=== PATIENT | male | born 1960 | race Hispanic/Latino ===

== ENCOUNTER 2016-07-09 09:30 | Emergency (ER) | payer BC ==
[2016-07-09 09:35] VITALS: BMI 26.6
[2016-07-09] MEDS ORDERED: Sodium Chloride 0.9% 1,000 ML IV STA ×2 (09:54→11:32)
--- NOTE | 2016-07-09 09:58 | ED PDOC ---
Arrival/HPI - General Chief Complaint: Dizziness/Lightheaded Time Seen by Provider: 07/09/16 09:51 Historian: Patient - History of Present Illness Narrative History of Present Illness (Text): 07/09/16 09:55 55 year old male presents to the emergency department with weakness, lightheadedness, and dizziness while driving today. Patient reports he recently started taking Lyrica and Cymbalta. Currently patient states symptoms are better. PMD: Dr. Miguel A Grande Time/Duration: Prior to Arrival Symptom Onset: Gradual Symptom Course: Improving Modifying Factors (Text): None Associated Symptoms (Text): None Past Medical History - Provider Review Nursing Documentation Reviewed: Yes - Cardiac Hx Hypertension: Yes Hx Pacemaker: No - Neurological Hx Paralysis: No Other/Comment: Peripheral Neuropathy - Hematological/Oncological Hx Blood Transfusions: No - Musculoskeletal/Rheumatological Hx Musculoskeletal Disorders: No - Psychiatric Hx Emotional Abuse: No Hx Physical Abuse: No Hx Substance Use: No - Surgical History Hx Appendectomy: Yes Hx Coronary Stent: Yes (x 1) - Anesthesia Hx Anesthesia Reactions: No Hx Malignant Hyperthermia: No - Suicidal Assessment Feels Threatened In Home Enviroment: No Family/Social History - Physician Review Nursing Documentation Reviewed: Yes Family/Social History: Unknown Family HX Smoking Status: Never Smoked Hx Alcohol Use: No Hx Substance Use: No Allergies/Home Meds Allergies/Adverse Reactions: Allergies No Known Allergies Allergy (Verified 07/09/16 09:35) Home Medications: Home Meds Medication Instructions Recorded Confirmed Aspirin [Ecotrin] 81 mg PO DAILY 05/02/15 07/09/16 DULoxetine [Cymbalta] 30 mg PO DAILY 07/09/16 07/09/16 Pregabalin [Lyrica] 50 mg PO DAILY 07/09/16 07/09/16 diltiaZEM [Diltiazem HCl] 0 mg PO DAILY 07/09/16 07/09/16 Review of Systems - Physician Review All systems were reviewed & negative as marked: Yes Physical Exam - Physical Exam Narrative Physical Exam (Text): - Review of Systems Constitutional: Normal. absent: Fatigue, Weight Change, Fevers Eyes: Normal ENT: Normal Respiratory: Normal absent: SOB, Cough, Sputum Cardiovascular: Normal absent: Chest pain, Palpitations, Syncope Gastrointestinal: Normal absent: Abdominal pain, Diarrhea, Nausea, Vomiting Genitourinary: Normal. absent: Dysuria, Frequency, Hematuria Musculoskeletal: Normal. absent: Arthralgias, Back Pain, Neck Pain Skin: Normal Neurological: Weakness/Lightheadedness/Dizziness absent: Focal Weakness Endocrine: Normal Hemo/Lymphatic: Normal Psychiatric: Normal - Physical exam Patient appears age appropriate, speaking full sentences without difficulty - Systems Exam Head: Present: Atraumatic, Normocephalic Pupils: Present: PERRL Extraocular Muscles: Present: EOMI Conjunctiva: Present: Normal Mouth: Present: Moist Mucous Membranes Neck: Present: Normal Range of Motion. No: MIDLINE TENDERNESS, Paraspinal Tenderness Respiratory/Chest: Present: Clear to Auscultation, Good Air Exchange. No: Respiratory Distress, Accessory Muscle Use, Tachypneic Cardiovascular: Present: Regular Rate and Rhythm, Normal S1, S2, Peripheral Pulses Present. No: Murmurs Abdomen: Present: Normal Bowel Sounds, No: Tenderness, Peritoneal Signs, Rebound, Guarding, Distention Back: Present: Normal Inspection. No: Midline Tenderness, Paraspinal Tenderness Upper Extremity: Present: Normal Inspection. No: Cyanosis, Edema Lower Extremity: Present: Normal Inspection. No: Edema Neurological: Present: GCS=15, Speech Normal, cranial nerves II through XII fully intact with no cerebellar abnormality, neuro-sensory fully intact. No focal neurological deficits. HINTS negative. Skin: Present: Warm, Dry, Normal Color. No: Rashes Lymphatic: Present: OX3, NI, NC Psychiatric: Present: Alert, Oriented x 3, Normal Insight, Normal Concentration Vital Signs Reviewed: Yes Vital Signs Temp Pulse Resp BP Pulse Ox 07/09/16 15:00 65 18 113/65 99 07/09/16 12:45 58 L 18 119/65 97 07/09/16 11:30 59 L 17 119/65 100 07/09/16 09:42 98.2 F 63 18 155/92 H 100 Blood Pressure: Hypertensive Pulse: Regular Respiratory Rate: Normal Appearance: Positive for: Well-Appearing, Non-Toxic, Comfortable Pain Distress: None Mental Status: Positive for: Alert and Oriented X 3 Finger Stick Blood Glucose: 170 Medical Decision Making ED Course and Treatment: Impression: 55 year old male presents with weakness, lightheadedness, and dizziness while driving today. On physical exam, patient has no acute findings. Plan: -- CT head w/o contrast, Chest X-ray -- IV fluids -- Labs -- Reassess and disposition Progress Notes: 07/09/16 11:37 Case discussed in detail with Dr. Miguel A Grande who asked to add Troponin and states he will see the patient in the emergency department. CT Head: Wirer Maintenance: Dr. Isaac Muller IMPRESSION: Normal CT of the Head. No acute intracranial abnormalities. No significant findings to account for the clinical presentation. Case discussed with Dr. Miguel A Grande who saw the patient in the emergency department. Dr. Grande states to discharge the patient home. He states the patient already has instructions to only take Lyrica and discontinue other medications. Patient states he feels comfortable being discharged home. Instructed patient to follow up with PMD or return to the emergency room if symptoms worsen. Patient stable for discharged. All questions answered. Patient received Ativan in the emergency department for feeling anxious, asked to sleep for a little longer before driving home. Patient denies suicidal or homicidal ideations, states he does not wish to speak with a crisis counselor. - Lab Interpretations Lab Results: 07/09/16 10:00 07/09/16 10:00 Lab Results 07/09/16 11:16: Urine Color Light yellow, Urine Appearance Clear, Urine pH 7.5, Ur Specific [place] 1.010, Urine Protein Negative, Urine Glucose (UA) Negative, Urine Ketones Negative, Urine Blood Negative, Urine Nitrate Negative, Urine Bilirubin Negative, Urine Urobilinogen 0.2, Ur Leukocyte Esterase Negative 07/09/16 10:00: WBC 6.7, RBC 5.59, Hgb 16.3, Hct 47.1, MCV 84.3, MCH 29.2, MCHC 34.6, RDW 13.1, Plt Count 217, MPV 9.8, Gran % 74.5 H, Lymph % (Auto) 19.0 L, [place] % (Auto) 5.1, Eos % (Auto) 1.3 L, Baso % (Auto) 0.1, Gran # 5.00, Lymph # 1.3, [place] # 0.3, Eos # 0.1, Baso # 0.01, PT 11.5, INR 1.06, APTT 30.0, Sodium 141, Potassium 4.0, Chloride 102, Carbon Dioxide 28, Anion Gap 15, BUN 16, Creatinine 1.0, Est GFR ( Amer) > 60, Est GFR (Non-Af Amer) > 60, Random Glucose 165 H, Calcium 10.5, Total Bilirubin 1.2, AST 22, ALT 22, Alkaline Phosphatase 65, Troponin I < 0.01, Total Protein 8.0, Albumin 4.6, Globulin 3.4 , Albumin/Globulin Ratio 1.4 07/09/16 09:39: POC Glucose (mg/dL) 170 H - RAD Interpretation Radiology Orders: 07/09/16 09:52 HEAD W/O CONTRAST [CT] Stat 07/09/16 09:54 CHEST PORTABLE [RAD] Stat - Medication Orders Current Medication Orders: Discontinued Medications Sodium Chloride (Sodium Chloride 0.9%) 1,000 mls @ 1,000 mls/hr IV .Q1H STA Stop: 07/09/16 10:53 Last Admin: 07/09/16 10:06 Dose: 1,000 MLS/HR eMAR Start Stop Document 07/09/16 10:06 ALA (Rec: 07/09/16 10:06 ALA [id number]) Intravenous Solution Start Date 07/09/16 Start Time 10:06 End Date 07/09/16 End time 11:06 Total Infusion Time 60 Sodium Chloride (Sodium Chloride 0.9%) 1,000 mls @ 1,000 mls/hr IV .Q1H STA Stop: 07/09/16 12:31 Last Admin: 07/09/16 11:46 Dose: 1,000 MLS/HR eMAR Start Stop Document 07/09/16 11:46 ALA (Rec: 07/09/16 11:47 ALA [id number]) Intravenous Solution Start Date 07/09/16 Start Time 11:46 End Date 07/09/16 End time 12:46 Total Infusion Time 60 Lorazepam (Ativan) 2 mg IVP ONCE ONE Stop: 07/09/16 11:23 Last Admin: 07/09/16 11:47 Dose: 2 MG Behavioural Document 07/09/16 11:47 ALA (Rec: 07/09/16 11:47 ALA [id number]) Maintenance Maintenance Dose Yes Behavior Behavior for Medication: Anxiety IVP Administration Document 07/09/16 11:47 ALA (Rec: 07/09/16 11:47 ALA [id number]) Charges for Administration # of IVP Administrations 1 - Scribe Statement The provider has reviewed the documentation as recorded by the Scribe Omi Ly Provider Scribe Attestation: All medical record entries made by the Basia were at my direction and personally dictated by me. I have reviewed the chart and agree that the record accurately reflects my personal performance of the history, physical exam, medical decision making, and the department course for this patient. I have also personally directed, reviewed, and agree with the discharge instructions and disposition. Disposition/Present on Arrival - Present on Arrival Any Indicators Present on Arrival: No History of DVT/PE: No History of Uncontrolled Diabetes: No Urinary Catheter: No History of Decub. Ulcer: No History Surgical Site Infection Following: None - Disposition Have Diagnosis and Disposition been Completed?: Yes Diagnosis: Weakness Disposition: HOME/ ROUTINE Disposition Time: 16:29 Patient Plan: Discharge Condition: GOOD Discharge Instructions (ExitCare): Weakness (ED) Additional Instructions: PLEASE RETURN TO THE EMERGENCY DEPARTMENT FOR NEW OR WORSENING SYMPTOMS. RETURN RIGHT AWAY IF YOU CANNOT FOLLOW UP WITH YOUR PRIMARY CARE DOCTOR, CLINIC, OR SPECIALIST IN 1-2 DAYS. Forms: WORK NOTE
[2016-07-09 10:09] LABS: ADD MANUAL DIFF? NO
[2016-07-09 10:16] LABS: BASO # 0.01 K/mm3 (0.0-2.0); BASO % 0.1 % (0.0-3.0); EOS # 0.1 (0.0-0.7); EOS % 1.3 % (1.5-5.0); GRAN % 74.5 % (50.0-68.0); HEMATOCRIT 47.1 % (42.0-52.0); LYMPH # 1.3 (1.2-3.4); MEAN CELL VOLUME 84.3 fL (80.0-105.0); MEAN CORPUSCULAR HEMOGLOBIN 29.2 pg (25.0-35.0); MEAN CORPUSCULAR HGB CONC 34.6 g/dl (31.0-37.0); MEAN PLATELET VOLUME 9.8 fl (7.0-11.0); MONO # 0.3 (0.1-0.6); MONO % 5.1 % (1.0-6.0); PLATELET COUNT 217 10^3/uL (120.0-450.0); RED CELL DISTRIBUTION WIDTH 13.1 % (11.5-14.5); WHITE BLOOD COUNT 6.7 10^3/ul (4.5-11.0)
[2016-07-09 10:27] LABS: INR 1.06 (0.93-1.08)
[2016-07-09 10:31] LABS: ALB/GLOB RATIO 1.4 (1.1-1.8); ALKALINE PHOSPHATASE 65 U/L (38-133); ALT/SGPT 22 U/L (7-56); AST/SGOT 22 U/L (15-59); BILIRUBIN,TOTAL 1.2 mg/dL (0.2-1.3); BLOOD UREA NITROGEN 16 mg/dL (7-21); CALCIUM 10.5 mg/dL (8.4-10.5); CARBON DIOXIDE 28 mmol/L (21-33); CHLORIDE 102 mmol/L (98-107); GFR AFRICAN-AMERICAN > 60; GLUCOSE,RANDOM 165 mg/dL (70-110); SODIUM 141 mmol/L (132-148)
--- NOTE | 2016-07-09 10:44 | CT ---
PROCEDURE: CT HEAD WITHOUT CONTRAST. HISTORY: [place] x2 weeks COMPARISON: None available. TECHNIQUE: Axial computed tomography images were obtained through the head/brain without intravenous contrast. Radiation dose: Total exam DLP = 688.31 mGy-cm. FINDINGS: HEMORRHAGE: No intracranial hemorrhage. BRAIN: No mass effect or edema. No atrophy or chronic microvascular ischemic changes. VENTRICLES: Unremarkable. No hydrocephalus. CALVARIUM: Unremarkable. PARANASAL SINUSES: Unremarkable as visualized. No significant inflammatory changes. MASTOID AIR CELLS: Unremarkable as visualized. No inflammatory changes. OTHER FINDINGS: None. IMPRESSION: Normal CT of the Head. No acute intracranial abnormalities. No significant findings to account for the clinical presentation.
--- NOTE | 2016-07-09 11:23 | RAD ---
HISTORY: Cough. Technique: Single view portable semi erect @ 10:20. COMPARISON: No prior. FINDINGS: LUNGS: No active pulmonary disease. PLEURA: No significant pleural effusion identified, no pneumothorax apparent. CARDIOVASCULAR: No radiographic findings to suggest acute or significant cardiovascular disease. OSSEOUS STRUCTURES: No significant abnormalities. VISUALIZED UPPER ABDOMEN: Normal. OTHER FINDINGS: None. IMPRESSION: No active disease.
[2016-07-09 11:25] LABS: PH,URINE 7.5 (4.7-8.0); URINE APPEARANCE CLEAR (CLEAR); URINE BILIRUBIN NEGATIVE (NEGATIVE); URINE BLOOD NEGATIVE (NEGATIVE); URINE COLOR LIGHT YELLOW (YELLOW); URINE GLUCOSE (UA) NEGATIVE (NEGATIVE); URINE KETONE NEGATIVE (NEGATIVE); URINE LEUKOCYTE ESTERASE NEGATIVE Leu/uL (NEGATIVE); URINE PROTEIN NEGATIVE mg/dL (<30 mg/dL); URINE UROBILINOGEN 0.2 E.U./dL (<1 E.U./dL)
[2016-07-09 12:45] VITALS: RESP 18
[2016-07-09 16:56] VITALS: BP 128/77; PULSE 58; TEMP 97.8; O2SAT 98
--- NOTE | 2016-07-09 18:27 | CARD ---
APPROVED REPORT EKG Measurement Heart [id number] <Conclusion> Normal sinus rhythm Normal ECG
== END 2016-07-09 16:56 | disposition home or self-care (01) ==
LOC: ED 09:30
DX: R53.1 Weakness (principal); I10 Essential (primary) hypertension
CPT/HCPCS: 70450; 71010; 80053; 81003; 82948; 84484; 85025; 85610; 85730; 93005; 96361; 96374; 99285; J2060; J7040

== ENCOUNTER 2016-07-13 08:42 | Inpatient (IN) | payer BC ==
--- NOTE | 2016-07-13 10:10 | ED PDOC ---
Arrival/HPI - General Chief Complaint: Dizziness/Lightheaded Time Seen by Provider: 07/13/16 09:09 Historian: Patient - History of Present Illness Narrative History of Present Illness (Text): 07/13/16 10:46 55yr old male presents today with dizziness, weakness, 45lb weight loss, cough, intermitted abdominal pain, constipation x 4 days. no fever/chills. c/o generalized weakness. pt was just seen in er for dizziness and generalized weakness and d/c home to f/u with pmd. pt presents today feeling worse. denies headaches. no cp or sob. c/o continued paresthesias in the lower extremities since he was diagnosed with peripheral neuropathy. Patient denies chest pain. Patient states he has been having intermittent cough. Patient denies urinary symptoms. No other complaints. Past Medical History - Provider Review Nursing Documentation Reviewed: Yes - Travel History Have you recently traveled outside [place] w/in the past 3 mons?: No - Tetanus Immunization Tetanus Immunization: Unknown - Cardiac Hx Cardiac Disorders: Yes Hx Hypertension: Yes Hx Pacemaker: No - Pulmonary Hx Respiratory Disorders: No - Neurological Hx Neurological Disorder: Yes Hx Paralysis: No Other/Comment: Peripheral Neuropathy - HEENT Hx HEENT Disorder: No - Renal Hx Renal Disorder: No - Endocrine/Metabolic Hx Endocrine Disorders: No - Hematological/Oncological Hx Blood Disorders: No Hx Blood Transfusions: No - Integumentary Hx Dermatological Disorder: No - Musculoskeletal/Rheumatological Hx Musculoskeletal Disorders: No - Gastrointestinal Hx Gastrointestinal Disorders: No - Genitourinary/Gynecological Hx Genitourinary Disorders: No - Psychiatric Hx Psychophysiologic Disorder: No Hx Emotional Abuse: No Hx Physical Abuse: No Hx Substance Use: No - Surgical History Hx Appendectomy: Yes Hx Coronary Stent: Yes (x 1) - Anesthesia Hx Anesthesia Reactions: No Hx Malignant Hyperthermia: No - Suicidal Assessment Feels Threatened In Home Enviroment: No Family/Social History - Physician Review Nursing Documentation Reviewed: Yes Family/Social History: Unknown Family HX Smoking Status: Never Smoked Hx Alcohol Use: No Hx Substance Use: No Allergies/Home Meds Allergies/Adverse Reactions: Allergies No Known Allergies Allergy (Verified 07/13/16 09:07) Home Medications: Home Meds Medication Instructions Recorded Confirmed Gabapentin [Neurontin] 400 mg PO TID 07/13/16 07/13/16 Review of Systems - Review of Systems Constitutional: Fatigue. absent: Fevers Respiratory: Cough. absent: SOB Cardiovascular: absent: Chest Pain Gastrointestinal: Abdominal Pain, Constipation. absent: Nausea, Vomiting Genitourinary Male: absent: Dysuria Musculoskeletal: Arthralgias Skin: absent: Rash Neurological: Dizziness. absent: Headache Physical Exam Vital Signs Reviewed: Yes Vital Signs Temp Pulse Resp BP Pulse Ox 07/13/16 11:00 66 16 146/96 H 100 07/13/16 09:07 98.2 F 60 16 116/72 100 Temperature: Afebrile Blood Pressure: Normal Pulse: Regular Respiratory Rate: Normal Appearance: Positive for: Well-Appearing, Non-Toxic, Comfortable Pain Distress: None Mental Status: Positive for: Alert and Oriented X 3 Finger Stick Blood Glucose: 105 - Systems Exam Head: Present: Atraumatic Mouth: Present: Moist Mucous Membranes Respiratory/Chest: Present: Clear to Auscultation Cardiovascular: Present: Regular Rate and Rhythm Abdomen: Present: Normal Bowel Sounds. No: Tenderness, Distention, Peritoneal Signs, Rebound, Guarding Upper Extremity: Present: Normal Inspection Neurological: Present: GCS=15, Speech Normal Skin: Present: Warm, Dry, Normal Color. No: Rashes Psychiatric: Present: Alert, Oriented x 3 Medical Decision Making ED Course and Treatment: 07/13/16 55yr old male presenting with generalized weakness, weight loss, dizziness, intermittent cough/abdominal pain and constipation. case discussed with dr. lamb and dr. hawkins; dr. hawkins would like ct/chest/abd/pelvis; concerned for possible neoplasm cbc; wnl cmp; wnl trop; wnl additional testing ordered. ct: chest/abd/pelvis:CT CHEST WITH CONTRAST: LUNGS: Clear. No nodule, mass or consolidation. MEDIASTINUM: Unremarkable. Normal caliber aorta and pulmonary arterial trunk. No aortic dissection. Normal size heart. LYMPH NODES: Unremarkable. PLEURA: Unremarkable. No pneumothorax. No pleural fluid. BONES: Unremarkable. OTHER FINDINGS: None. CT ABDOMEN AND PELVIS: LIVER: Unremarkable. No gross lesion or ductal dilatation. GALLBLADDER AND BILE DUCTS: Unremarkable. PANCREAS: There is a poorly defined area of low density in the pancreatic tail seen on image 126 series 2. This measures 7 x 14 mm. This is not visible on the corresponding coronal or sagittal images. Part of the appearance may be due to volume averaging. However, considering the history of weight loss further evaluation such is endoscopic ultrasound and tumor markers should be considered to rule out pancreatic neoplasm. SPLEEN: Unremarkable. ADRENALS: Unremarkable. No mass. KIDNEYS AND URETERS: Unremarkable. No hydronephrosis. No solid mass. VASCULATURE: Unremarkable. No aortic aneurysm. BOWEL: Unremarkable. No obstruction. No gross mural thickening. APPENDIX: Normal appendix. PERITONEUM: Unremarkable. No free fluid. No free air. LYMPH NODES: Unremarkable. No enlarged lymph nodes. BLADDER: Unremarkable. REPRODUCTIVE: Unremarkable. BONES: No acute fracture. OTHER FINDINGS: None. IMPRESSION: Possible lesion in the tail of the pancreas. See comments No evidence of lung mass or infiltrate impression; abdominal pain, dizziness, pancreatic tail lesion admit to med/surg 07/13/16 13:58 results discussed with the patient; dr. lamb made aware of CT findings. - Lab Interpretations Lab Results: 07/13/16 11:20 07/13/16 11:20 Lab Results 07/13/16 11:20: WBC 6.4, RBC 5.73, Hgb 16.9, Hct 48.6, MCV 84.8, MCH 29.5, MCHC 34.8, RDW 13.3, Plt Count 234, MPV 10.1, Gran % 69.0 H, Lymph % (Auto) 23.2, [place] % (Auto) 6.4 H, Eos % (Auto) 1.2 L, Baso % (Auto) 0.2, Gran # 4.42, Lymph # 1.5, [place] # 0.4, Eos # 0.1, Baso # 0.01, ESR 3, Sodium 142, Potassium 4.1, Chloride 100, Carbon Dioxide 30, Anion Gap 16, BUN 14, Creatinine 0.9, Est GFR ( Amer) > 60, Est GFR (Non-Af Amer) > 60, Random Glucose 107, Calcium 10.3 , Total Bilirubin 1.2, AST 32, ALT 40, Alkaline Phosphatase 68, Lactate Dehydrogenase 395, Total Creatine Kinase 45, Troponin I < 0.01, Total Protein 9.1 H, Albumin 5.0 H, Globulin 4.1, Albumin/Globulin Ratio 1.2, Amylase 111, Lipase 68, Vitamin B12 Pending, Hepatitis C Antibody Pending - RAD Interpretation Radiology Orders: 07/13/16 10:28 CHEST,ABD,PEL W/IV&PO CONTRAST [CT] Stat - Medication Orders Current Medication Orders: Escitalopram Oxalate (Lexapro) 10 mg PO DAILY ANJU Last Admin: 07/13/16 12:03 Dose: 10 MG Gabapentin (Neurontin) 400 mg PO TID ANJU PRN Reason: Protocol Potassium Chloride 20 meq/ (Sodium Chloride) 1,010 mls @ 100 mls/hr IV .Q10H6M STA Stop: 07/13/16 23:11 Lorazepam (Ativan) 2 mg PO HS PRN; Protocol PRN Reason: Anxiety Lorazepam (Ativan) 1 mg PO TID PRN; Protocol PRN Reason: Anxiety Last Admin: 07/13/16 13:27 Dose: 1 MG Behavioural Document 07/13/16 13:27 MB (Rec: 07/13/16 13:28 MB [id number]) Maintenance Maintenance Dose Yes Discontinued Medications Iohexol (Omnipaque 240 (50 Ml)) Confirm Administered Dose 50 ml .ROUTE .STK-MED ONE Stop: 07/13/16 10:23 Iohexol (Omnipaque 350 100 Ml) Confirm Administered Dose 350 mg .ROUTE .STK-MED ONE Stop: 07/13/16 11:31 Lorazepam (Ativan) 1 mg PO TID ANJU PRN Reason: Protocol Disposition/Present on Arrival - Present on Arrival Any Indicators Present on Arrival: No History of DVT/PE: No History of Uncontrolled Diabetes: No Urinary Catheter: No History of Decub. Ulcer: No History Surgical Site Infection Following: None - Disposition Have Diagnosis and Disposition been Completed?: Yes Diagnosis: Abdominal pain, Pancreatic lesion Disposition: HOSPITALIZED Disposition Time: 10:10 Patient Plan: Admission Patient Problems: Current Active Problems Problem Status Diagnosed Abdominal pain Acute Pancreatic lesion Acute Condition: FAIR
[2016-07-13] MEDS ORDERED: Iohexol 240 (50 ml) ONE (10:22)
[2016-07-13] MEDS ORDERED: Iohexol 350 MG/100 ML VIAL ONE (11:30)
[2016-07-13 11:40] LABS: ADD MANUAL DIFF? NO
[2016-07-13 11:59] LABS: BASO # 0.01 K/mm3 (0.0-2.0); BASO % 0.2 % (0.0-3.0); EOS # 0.1 (0.0-0.7); EOS % 1.2 % (1.5-5.0); GRAN # 4.42 (1.4-6.5); HEMATOCRIT 48.6 % (42.0-52.0); LYMPH # 1.5 (1.2-3.4); LYMPH % 23.2 % (22.0-35.0); MEAN CELL VOLUME 84.8 fL (80.0-105.0); MEAN CORPUSCULAR HEMOGLOBIN 29.5 pg (25.0-35.0); MEAN CORPUSCULAR HGB CONC 34.8 g/dl (31.0-37.0); MEAN PLATELET VOLUME 10.1 fl (7.0-11.0); MONO # 0.4 (0.1-0.6); MONO % 6.4 % (1.0-6.0); PLATELET COUNT 234 10^3/uL (120.0-450.0); RED CELL DISTRIBUTION WIDTH 13.3 % (11.5-14.5); WHITE BLOOD COUNT 6.4 10^3/ul (4.5-11.0)
[2016-07-13 12:05] LABS: ALB/GLOB RATIO 1.2 (1.1-1.8); ALKALINE PHOSPHATASE 68 U/L (38-133); ALT/SGPT 40 U/L (7-56); AMYLASE 111 U/L (35-125); AST/SGOT 32 U/L (15-59); BILIRUBIN,TOTAL 1.2 mg/dL (0.2-1.3); BLOOD UREA NITROGEN 14 mg/dL (7-21); CALCIUM 10.3 mg/dL (8.4-10.5); CARBON DIOXIDE 30 mmol/L (21-33); CHLORIDE 100 mmol/L (95-110); GFR AFRICAN-AMERICAN > 60; GLUCOSE,RANDOM 107 mg/dL (70-110); LIPASE 68 U/L (23-300); POTASSIUM 4.1 mmol/L (3.6-5.0); SODIUM 142 mmol/L (132-148); TOTAL PROTEIN 9.1 g/dL (5.8-8.3)
--- NOTE | 2016-07-13 12:33 | CT ---
PROCEDURE: CT Chest, Abdomen and Pelvis with intravenous contrast HISTORY: smoker/cough/weight loss/abd pain COMPARISON: None. TECHNIQUE: IV dose administered: 100 cc of Omni 350 Radiation dose: Total exam DLP = 1037 mGy-cm. This CT exam was performed using one or more of the following dose reduction techniques: Automated exposure control, adjustment of the mA and/or kV according to patient size, and/or use of iterative reconstruction technique. FINDINGS: CT CHEST WITH CONTRAST: LUNGS: Clear. No nodule, mass or consolidation. MEDIASTINUM: Unremarkable. Normal caliber aorta and pulmonary arterial trunk. No aortic dissection. Normal size heart. LYMPH NODES: Unremarkable. PLEURA: Unremarkable. No pneumothorax. No pleural fluid. BONES: Unremarkable. OTHER FINDINGS: None. CT ABDOMEN AND PELVIS: LIVER: Unremarkable. No gross lesion or ductal dilatation. GALLBLADDER AND BILE DUCTS: Unremarkable. PANCREAS: There is a poorly defined area of low density in the pancreatic tail seen on image 126 series 2. This measures 7 x 14 mm. This is not visible on the corresponding coronal or sagittal images. Part of the appearance may be due to volume averaging. However, considering the history of weight loss further evaluation such is endoscopic ultrasound and tumor markers should be considered to rule out pancreatic neoplasm. SPLEEN: Unremarkable. ADRENALS: Unremarkable. No mass. KIDNEYS AND URETERS: Unremarkable. No hydronephrosis. No solid mass. VASCULATURE: Unremarkable. No aortic aneurysm. BOWEL: Unremarkable. No obstruction. No gross mural thickening. APPENDIX: Normal appendix. PERITONEUM: Unremarkable. No free fluid. No free air. LYMPH NODES: Unremarkable. No enlarged lymph nodes. BLADDER: Unremarkable. REPRODUCTIVE: Unremarkable. BONES: No acute fracture. OTHER FINDINGS: None. IMPRESSION: Possible lesion in the tail of the pancreas. See comments No evidence of lung mass or infiltrate
[2016-07-13 12:48] LABS: TROPONIN I < 0.01 ng/mL
[2016-07-13 13:04] LABS: ERYTHROCYTE SEDIMENTATION RATE 3 mm/hr (0.00-15.0)
[2016-07-13 13:09] LABS: T3 UPTAKE 40.7 % (23.0-41.0); T4 7.6 ug/dL (5.5-11.0)
[2016-07-13 13:24] LABS: THYROID STIMULATING HORMONE 0.62 mIU/mL (0.46-4.68)
--- NOTE | 2016-07-13 15:31 | HP ---
HISTORY OF PRESENT ILLNESS: The patient is a 55-year-old male who presents with a 2-month history of paresthesias involving the feet and most recently the hands in addition to weight loss, abdominal pain and no bowel movement in the past 3-4 days. He complains of generalized weakness. No fever, no chills, no chest pain, no shortness of breath, no cough, no jaundice. The patient has had a decreased appetite and weight loss of approximately 20 pounds in the past 3-4 months. PAST MEDICAL HISTORY: Includes coronary artery disease status post stent placement, history of hypertension and hypercholesterolemia. The patient has a history of hyperglycemia with possible prediabetes. The patient has no significant past surgical history. CURRENT MEDICATIONS: Include Neurontin 400 mg 3 times daily. The patient was previously on Livalo 2 mg daily and Micardis 80 mg daily. ALLERGIES: The patient has no known drug allergies. FAMILY HISTORY: Noncontributory. REVIEW OF SYSTEMS: Essentially as above. SOCIAL HISTORY: The patient has a history of tobacco use. No history of alcohol or drug use. PHYSICAL EXAMINATION: GENERAL: The patient is a well-developed male, in no acute distress. VITAL SIGNS: Blood pressure 126/81, temperature 98, pulse 59, respiratory rate 20. HEENT: Head is normocephalic, atraumatic. Pupils equal, round and reactive to light. Extraocular movements intact. NECK: Supple. No thyromegaly, no adenopathy, no carotid bruit. LUNGS: Clear. HEART: Regular rate and rhythm. ABDOMEN: Soft, nontender. Bowel sounds are normoactive. EXTREMITIES: Without cyanosis, clubbing or edema. Femoral dorsalis pedis, posterior tibial and popliteal pulses are 2/2 bilaterally. NEUROLOGIC: The patient is awake and oriented x 3 without focal, sensory or motor deficits. SKIN: Warm and dry. LABORATORY DATA: WBC 6.4, hemoglobin 16.9, hematocrit 48.6. Sodium 142, potassium 4.1, chloride 100, CO2 30, BUN 14, creatinine 0.9, glucose 107. Thyroid function tests are within normal limits. Chest x-ray shows no active disease. CT scan of the chest, abdomen and pelvis with oral and IV contrast shows a possible 7 mm x 14 mm lesion in the tail of the pancreas. IMPRESSION: 1. Abdominal pain, weight loss and paresthesias, rule out paraneoplastic syndrome due to occult malignancy versus peripheral neuropathy, idiopathic versus secondary to diabetes, rule out multiple sclerosis. 2. Prediabetes. 3. Hypertension. 4. Coronary artery disease, status post stent placement. 5. Hypercholesterolemia. PLAN: The patient will be admitted to the medical surgical floor. We will keep n.p.o. We will obtain GI consult for possible endoscopic ultrasound. Check tumor markers, CEA and CA 19-9 antigens. Neurology consult, Dr. Weeks. We will obtain CT scan of the brain and spine to rule out multiple sclerosis. Miguel A Grande JD, MD cc: [id number] TT: 07/13/2016 15:30:59 en MTDD
[2016-07-13] MEDS ORDERED: Peg-Electrolyte Oral Soln 4L (Golytely) PO ONE (16:00)
--- NOTE | 2016-07-13 16:10 | CP.PCM.CON ---
<Mariaa Abebe - Last Filed: 07/13/16 16:41> History of Present Illness - History of Present Illness History of Present Illness: SURGICAL CONSULT NOTE FOR DR. EUBANKS 55 year old male with past medical history of CAD s/p 1 stent, HTN, hypercholestrolemia presented to ED for fatigue, weakness and sensation of heat and cold in his LE B/L for about 1 week. Surgical consult is requested for possible lesions in tail of pancreas. Patient states that for past 4 months, he has been exercising and controlling his diet. Since then, he has lost about 20 lbs. Also for past 4 months, he has been experiencing neuropathy in his feet. He feel like his feet are burning and then get really cold. He states that he has had "many tests" done to assess the cause of the neuropathy. However , his symptoms have not improved. This has got him feeling very depressed and hopeless. Since feeling hopeless, he has also lost an additional 10 lbs. In total, patient has lost about 30 lbs within 4 months. For past week though, patient has been feeling very fatigued, weak. dizzy with a lot of neuropathy in his feet. Patient also states that he is now beginning to feel tingling in his UE fingers B/L. Denies having any CP, SOB, abd pain, N/V/D/C, urinary symptoms. Patient ambulates without difficulty. PMHx: stated above Sx: appendectomy, coronary stents Meds: see MAR NKDA FHx: HTN Social; former smoker for 25 years quit 12 yrs ago. No ETOH or Drug use. works as psychiatrist PMD: Dr. Grande Review of Systems - Review of Systems All systems: reviewed and no additional remarkable complaints except - Constitutional Constitutional: As Per HPI, Fatigue, Malaise, Weight Loss, Weakness. absent: Chills, Fever, Headache - Cardiovascular Cardiovascular: absent: Chest Pain, Dyspnea, Leg Edema, Palpitations, Pedal Edema - Respiratory Respiratory: absent: Cough, Dyspnea, Wheezing - Gastrointestinal Gastrointestinal: absent: Abdominal Pain, Bloating, Constipation, Diarrhea, Nausea, Vomiting - Genitourinary Genitourinary: absent: Dysuria, Urinary Frequency - Musculoskeletal Musculoskeletal: Numbness, Tingling. absent: Back Pain - Integumentary Integumentary: absent: Lesions, Rash - Neurological Neurological: Dizziness, Numbness, Paresthesias. absent: Abnormal Gait, Abnormal Movements, Disequilibrium, Headaches Past Patient History - Tetanus Immunizations Tetanus Immunization: Unknown - Past Social History Smoking Status: Former Smoker Alcohol: None Drugs: Denies - CARDIAC Hx Cardiac Disorders: Yes Hx Hypertension: Yes Hx Pacemaker: No - PULMONARY Hx Respiratory Disorders: No - NEUROLOGICAL Hx Neurological Disorder: Yes Hx Paralysis: No Other/Comment: Peripheral Neuropathy - HEENT Hx HEENT Problems: No - RENAL Hx Chronic Kidney Disease: No - ENDOCRINE/METABOLIC Hx Endocrine Disorders: No - HEMATOLOGICAL/ONCOLOGICAL Hx Blood Disorders: No Hx Blood Transfusions: No - INTEGUMENTARY Hx Dermatological Problems: No - MUSCULOSKELETAL/RHEUMATOLOGICAL Hx Musculoskeletal Disorders: No - GASTROINTESTINAL Hx Gastrointestinal Disorders: No - GENITOURINARY/GYNECOLOGICAL Hx Genitourinary Disorders: No - PSYCHIATRIC Hx Psychophysiologic Disorder: No Hx Emotional Abuse: No Hx Physical Abuse: No Hx Substance Use: No - SURGICAL HISTORY Hx Appendectomy: Yes Hx Coronary Stent: Yes (x 1) - ANESTHESIA Hx Anesthesia Reactions: No Hx Malignant Hyperthermia: No Meds Allergies/Adverse Reactions: Allergies Allergy/AdvReac Type Severity Reaction Status Date / Time No Known Allergies Allergy Verified 07/13/16 09:07 - Medications Medications: Current Medications Escitalopram Oxalate (Lexapro) 10 mg PO DAILY [facility] Last Admin: 07/13/16 12:03 Dose: 10 mg Gabapentin (Neurontin) 400 mg PO TID ANJU PRN Reason: Protocol Last Admin: 07/13/16 14:28 Dose: 400 mg Potassium Chloride 20 meq/ (Sodium Chloride) 1,010 mls @ 100 mls/hr IV .Q10H6M STA Stop: 07/13/16 23:11 Last Admin: 07/13/16 14:28 Dose: 100 mls/hr Lorazepam (Ativan) 2 mg PO HS PRN; Protocol PRN Reason: Anxiety Lorazepam (Ativan) 1 mg PO TID PRN; Protocol PRN Reason: Anxiety Last Admin: 07/13/16 13:27 Dose: 1 mg Polyethylene Glycol/Electrolytes (Golytely) 4,000 ml PO ONCE ONE Stop: 07/13/16 16:01 Physical Exam - Constitutional Appears: Non-toxic, No Acute Distress - Head Exam Head Exam: ATRAUMATIC - ENT Exam ENT Exam: Mucous Membranes Moist - Respiratory Exam Respiratory Exam: absent: Accessory Muscle Use, Respiratory Distress - GI/Abdominal Exam GI & Abdominal Exam: Soft. absent: Distended, Firm, Guarding, Rigid, Tenderness - Extremities Exam Extremities exam: Negative for: calf tenderness, pedal edema, tenderness - Neurological Exam Neurological exam: Alert, Oriented x3 - Psychiatric Exam Psychiatric exam: Normal Affect, Normal Mood - Skin Skin Exam: Dry, Intact, Normal Color, Warm Results - Vital Signs Recent Vital Signs: Last Vital Signs Temp 98.5 F 07/13/16 15:51 Pulse 69 07/13/16 15:51 Resp 20 07/13/16 15:51 BP 135/71 07/13/16 15:51 Pulse Ox 98 07/13/16 15:51 - Labs Result Diagrams: 07/13/16 11:20 07/13/16 11:20 Labs: Laboratory Results - last 24 hr 07/13/16 11:30 Thyroxine (T4) 7.6 T3 Uptake 40.7 TSH 3rd Generation 0.62 - EKG Data EKG Interpreted by: ER Physician Assessment & Plan - Assessment and Plan (Free Text) Assessment: 55 year old male with past medical history of HLD, CAD s/p stent, HTN is seen for possible lesion in tail of pancreas seen on CT of chest/abd/pelvis with IV & PO contrast. Plan: - GI is consulted, awaiting further recs for possible ERCP vs. MRCP. Will follow up on studies - Neurology is consulted. Awaiting further recs Will discuss with attending Dr. Eubanks for further recs. Mariaa Héctorsamia PGY1 - Date & Time Date: 07/13/16 Time: 16:13 <Armen Eubanks - Last Filed: 07/20/16 10:05> Results - Vital Signs Recent Vital Signs: Last Vital Signs Temp 97.9 F 07/15/16 08:26 Pulse 81 07/15/16 08:26 Resp 18 07/15/16 08:26 BP 130/70 07/15/16 08:26 Pulse Ox 99 07/15/16 08:26 - Labs Result Diagrams: 07/14/16 07:00 07/14/16 07:00 Assessment & Plan - Assessment and Plan (Free Text) Assessment: DX Depression,weight loss/constipation(Doubt Pancreatic mass) Consult done under my direct supervision Jacquie Eubanks MD FACS
[2016-07-13 17:43] VITALS: BMI 26.6
--- NOTE | 2016-07-13 18:58 | CARD ---
APPROVED REPORT EKG Measurement Heart [id number] UT [id number] <Conclusion> Sinus bradycardia Otherwise normal ECG
--- NOTE | 2016-07-13 19:23 | CON ---
DATE: 07/13/2016 CHIEF COMPLAINT: Paresthesias in the hands and feet and burning pain and generalized weakness and we ight loss. HISTORY OF PRESENT ILLNESS: This is a 55-year-old man with past medical history of coronary artery d isease, status post stent placement, history of hypertension, hypercholesterolemia who has complained a few months of tingling, numbness and burning pain in his hands and feet and feels like his feet ar e frostbite in terms of being extremely cold. He describes he first started with freezing sensation in the right foot and then went to the left foot 1 month later, now a burning sensation on both feet, worse on the right than the left and paresthesias in the hands as well, which started at the end of 03/2016, and has been increasing over the past few months. He said he has been pretty active playing basketball with his kids and he was dieting in terms of eating a lot of salads, and therefore, he th inks that his weight loss is approximately 20-pound weight loss the past 3-4 months due to dieting. He come in also for some mild abdominal pain, which is being worked up. CT of his abdomen and pelvis showed a possible lesion in the tail of the pancreas, but no evidence of any lung mass or infiltrate , which is currently getting worked up. He is probably going to go for an ERCP versus MRCP per GI. He has been tried gabapentin 400 mg p.o. t.i.d. for neuropathic pain, on and off, has seen a neurolog ist outside and an orthopedic doctor where he had an EMG which apparently was normal, but did not vis ualize the reports. He is a former smoker, quit 8 years ago. He denies any blurry vision or double vision or any electrical sensation going down from his neck to the back. He denies any focal weaknes s in the extremities. Denies any use of any herbal agents or any certain vitamins that are non-FDA approved. He denies any exposure to paint or heavy metals. He denies any wheat or any grain allergy . Currently, he is moving all extremities. There is no pronator drift seen. He is following comman ds. There are no issues with his speech, but on examination, I do feel that his feet are cold. He h as had a Doppler in the past which did not show anything acute. PAST MEDICAL HISTORY: Coronary artery disease, status post stent placement, history of hypertension, hypercholesterolemia, history of an EMG nerve conduction study in the past which was normal by an or thopedic doctor. CURRENT MEDICATIONS: Neurontin 400 mg 3 times daily, was previously on Livalo 2 mg, Micardis 80 mg d aily. ALLERGIES: No known drug allergies. SOCIAL HISTORY: He is a former smoker, quit 8 years ago. No illicit drug use or ETOH abuse. REVIEW OF SYSTEMS: A 14-point review of systems is negative, except for the HPI. FAMILY HISTORY: Noncontributory. PHYSICAL EXAMINATION: VITAL SIGNS: Temperature 98, pulse rate 69, blood pressure 135/71, respiratory rate 20, oxygen 98% o n room air. GENERAL: The patient is sitting up in bed in no acute distress. HEENT: Atraumatic, normocephalic. PERRLA. Extraocular muscles intact. NECK: Supple, no JVD, no adenopathy noted. LUNGS: Clear to auscultation. No adventitious sounds. HEART: S1, S2, normal rate and rhythm. No murmurs, rubs, or gallops. ABDOMEN: Soft, nontender, nondistended. Bowel sounds are present. EXTREMITIES: No clubbing, no cyanosis. Peripheral pulses are in terms of dorsalis pedis, posterior tibial, popliteal pulses are felt bilaterally. His feet are cold though his pulses are felt. NEUROLOGIC: The patient is alert, oriented to person, place, month and year. Speech is fluent, with out any errors. Cranial nerves II through XII are intact. MOTOR: Moves all extremities equally. No pronator drift seen. Strength is 5/5 in both upper and lo wer extremities. Toes are upgoing bilaterally. SENSORY: Light touch, pinprick, proprioception, vibration intact. DTRs are 2+ throughout and brisk at the knees, but no clonus demonstrated. COORDINATION: Lqrahp-it-qhbm intact. GAIT: Normal. Romberg negative. LABORATORY DATA: Sodium is 142, potassium 4.1, chloride of 100, carbon dioxide 30, BUN of 14, creati nine 0.9, random glucose of 107 and his CEA is 0.7. Vitamin B12 is more than 1000. C-reactive prote in is 0.40. Thyroid function test is normal. Amylase and lipase are normal. LFTs are normal. ASSESSMENT AND PLAN: This is a 55-year-old man with past medical history of hypertension, coronary a rtery disease status post stent, hypercholesterolemia, who came in with an average of a 20-pound weig ht loss due to him dieting, history of paresthesias which are now starting to become a burning sensat ion in his hands and feet and cold, as well as complaints of cold feet, which have been migrating fro m one leg to the other and now it is in both legs and hands with some generalized weakness. CT abdom en and pelvis showing a questionable lesion on the tail of the pancreas, but no evidence of any lung masses or infiltrates, which he is undergoing evaluation with GI for that. His B12 is more than 1000 and his CEA is 0.7, which is normal. C-reactive protein is 0.40. Based on my neurological examinat ion, he is slightly brisk on his knees, but he is also active with his children in terms of playing b asketball. At this time, I feel like his paresthesias could be due to an underlying peripheral neuro sukhwinder versus a central origin like a demyelinating disease in the cervical of the brain. Will recommend: 1. MRI of the brain and MRI of the C-spine with and without contrast to assess for any demyelinating disease or central disorder. 2. We will get labs: SPEP, immunofixation tests, TPO antibodies, cryoglobulins, lead, B1, B6 level, rheumatoid factor, Lyme disease factor, serum protein electrophoresis, anti-Hu antibodies, paraneopl astic panel. We will get a celiac profile. 3. If all results are negative, then we will get an outpatient EMG nerve conduction study to repeat to assess for any form of idiopathic type of neuropathy. 4. Get a heavy metal urine screening. 5. Continue with current present medical management and continue with his current dose of gabapentin 400 mg p.o. t.i.d. for neuropathic pain relief and recommend also alpha lipoic acid 600 mg p.o. t.i. d. as an outpatient. At this time, we will wait for the workup of the results. Continue with current present medical steve rivera. Thank you for this consult. Stefano Weeks MD cc: [phone] TT: 07/13/2016 19:23:41 Confirmation # [id number] Dictation # [id number] mn
--- NOTE | 2016-07-13 22:40 | CP.PCM.PCO ---
Physician Communication Note - Physician Communication Note Physician Communication Note: Depression/Neuropathy/40#Wgt loss-Needs MRCP ? Pancreas leasion tail
[2016-07-14 03:01] LABS: TOTAL PROTEIN, SERUM 8.5 g/dL (6.1-8.1)
[2016-07-14 07:44] LABS: LYME DISEASE SCREEN <0.90 index (())
[2016-07-14 07:49] LABS: ADD MANUAL DIFF? NO
--- NOTE | 2016-07-14 07:51 | CP.PCM.PCO ---
Physician Communication Note - Physician Communication Note Physician Communication Note: MRCP today/Tumor markers negative
[2016-07-14 07:56] LABS: BASO # 0.01 K/mm3 (0.0-2.0); BASO % 0.2 % (0.0-3.0); EOS # 0.1 (0.0-0.7); EOS % 2.1 % (1.5-5.0); GRAN # 3.41 (1.4-6.5); GRAN % 60.4 % (50.0-68.0); LYMPH # 1.7 (1.2-3.4); LYMPH % 29.9 % (22.0-35.0); MEAN CELL VOLUME 84.1 fL (80.0-105.0); MEAN CORPUSCULAR HEMOGLOBIN 29.4 pg (25.0-35.0); MEAN CORPUSCULAR HGB CONC 34.9 g/dl (31.0-37.0); MONO # 0.4 (0.1-0.6); MONO % 7.4 % (1.0-6.0); PLATELET COUNT 220 10^3/uL (120.0-450.0); RED CELL DISTRIBUTION WIDTH 13.3 % (11.5-14.5); WHITE BLOOD COUNT 5.7 10^3/ul (4.5-11.0)
[2016-07-14 08:01] LABS: INR 1.1 (0.93-1.08)
[2016-07-14 08:06] LABS: ALB/GLOB RATIO 1.3 (1.1-1.8); ALKALINE PHOSPHATASE 56 U/L (38-133); ALT/SGPT 45 U/L (7-56); AST/SGOT 28 U/L (15-59); BILIRUBIN,TOTAL 1.2 mg/dL (0.2-1.3); BLOOD UREA NITROGEN 12 mg/dL (7-21); CALCIUM 9.3 mg/dL (8.4-10.5); CARBON DIOXIDE 27 mmol/L (21-33); CHLORIDE 102 mmol/L (95-110); GFR AFRICAN-AMERICAN > 60; GLUCOSE,RANDOM 93 mg/dL (70-110); POTASSIUM 3.8 mmol/L (3.6-5.0); SODIUM 140 mmol/L (132-148)
--- NOTE | 2016-07-14 09:01 | CP.PCM.PN ---
Subjective - Date & Time of Evaluation Date of Evaluation: 07/14/16 Time of Evaluation: 08:57 - Subjective Subjective: SURGICAL PROGRESS NOTE FOR DR. LO Pt seen and examined at bedside. No acute events overnight. Colonoscopy scheduled today and pt is now having clear BMs. Denie shaving any abd pain, N/ V. C/o neuropathy in upper and lower extremities. Objective - Vital Signs/Intake and Output Vital Signs (last 24 hours): Temp Pulse Resp BP Pulse Ox 98.4 F 66 18 131/86 98 07/14/16 07:30 07/14/16 07:30 07/14/16 07:30 07/14/16 07:30 07/14/16 07:30 Intake and Output: 07/14/16 07/14/16 06:59 18:59 Intake Total 540 Balance 540 - Medications Medications: Current Medications Escitalopram Oxalate (Lexapro) 10 mg PO DAILY ANJU Last Admin: 07/13/16 12:03 Dose: 10 mg Gabapentin (Neurontin) 400 mg PO TID ANJU PRN Reason: Protocol Last Admin: 07/13/16 14:28 Dose: 400 mg Lorazepam (Ativan) 1 mg PO TID PRN; Protocol PRN Reason: Anxiety Last Admin: 07/13/16 13:27 Dose: 1 mg Lorazepam (Ativan) 2 mg IVP HS PRN; Protocol PRN Reason: Anxiety Last Admin: 07/13/16 23:30 Dose: 2 mg Zolpidem Tartrate (Ambien) 10 mg PO HS PRN; Protocol PRN Reason: Insomnia - Labs Labs: 07/14/16 07:00 07/14/16 07:00 PT 11.9 Seconds (9.9-11.8) H 07/14/16 07:00 INR 1.10 (0.93-1.08) H 07/14/16 07:00 APTT 29.0 Seconds (23.7-30.8) 07/14/16 07:00 - Constitutional Appears: Non-toxic, No Acute Distress - Head Exam Head Exam: ATRAUMATIC - ENT Exam ENT Exam: Mucous Membranes Moist - Respiratory Exam Respiratory Exam: absent: Accessory Muscle Use, Respiratory Distress - GI/Abdominal Exam GI & Abdominal Exam: Soft. absent: Distended, Firm, Guarding, Rigid, Tenderness - Neurological Exam Neurological Exam: Alert, Awake, Oriented x3 - Psychiatric Exam Psychiatric exam: Normal Affect, Normal Mood - Skin Skin Exam: Dry, Intact, Normal Color, Warm Assessment and Plan - Assessment and Plan (Free Text) Assessment: 55 year old male with past medical history of HLD, CAD s/p stent, HTN is seen for possible lesion in tail of pancreas seen on CT of chest/abd/pelvis with IV & PO contrast. Plan: - MRCP is negative. Nothing visualized on tail of pancreas - Colonscopy scheduled today with GI. - Neurology is consulted. Awaiting further recs Will discuss with attending Dr. Lo for further recs. Mariaa Abebe PGY1
[2016-07-14] MEDS ORDERED: Gadodiamide 287 MG/ML VIAL (15ML) IV ONE (10:01)
--- NOTE | 2016-07-14 10:22 | CON ---
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 He was also complaining of history of constipation. The patient was i nitially trying to lose weight and exercising and dieting for 4 months, starting from 12/2015. Then the patient also noticed some burning feeling like sensation of the feet and told to have neuropathy. He was seen by neurologist and he was started on Neurontin. He also was advised acute increase the dose. The patient lost appetite and he was also feeling depressed and lost another 10 pounds in annel ght. The patient was also feeling very weak and fatigued, dizzy. The patient did have a CT of the a bdomen and pelvis and chest done which showed some abnormalities in the tail of the pancreas. GI con sult was requested because of that. He also noticed some change of bowel habits recently, became mor e constipated. OTHER PAST MEDICAL HISTORY: Significant as above, history of appendectomy, coronary stent 1. ALLERGIES: No known drug allergy. FAMILY HISTORY: Positive for hypertension. SOCIAL HISTORY: Ex-smoker, quit about 12 years ago. No alcohol use. REVIEW OF SYSTEMS: Positive as above. Other systems reviewed and negative. PHYSICAL EXAMINATION: GENERAL: The patient is lying on the bed, not in acute distress. VITAL SIGNS: Pulse is 59, blood pressure 126/81, respirations 20, O2 sat is 98%. HEENT: Atraumatic, anicteric. NECK: Supple. HEART: S1, S2 heard. LUNGS: Bilateral air entry present. ABDOMEN: Soft. There is no mass, no tenderness. EXTREMITIES: No edema, no cyanosis. NEUROLOGIC: Alert, oriented. The patient has a history of paresthesia, neuropathy. LABORATORY DATA: Hemoglobin 16.9, hematocrit 48.6, WBC 6.4, platelets 234. Chemistry is BUN 14, cre atinine 0.9. LFTs are essentially unremarkable. The CT of the abdomen and pelvis was reviewed with the radiologist, Dr. Clemons. There was a 7 x 14 m m poorly defined area of low density in the pancreatic tail area noticed. 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 He has significant weight loss of about 45 pounds. The patient has a CT scan that showed a questionable ill-defined hypodensity in the tail of the pancreas. The concern is rule out pancreatic malignancy. Weight loss; rule out any occult gastrointestinal malignancy. PLAN: Would recommend at this point scheduling the patient for an EGD, EUS, and a colonoscopy. The patient is being prepared for the procedure. For the hypodensity would recommend ____. To rule out occult malignancy, the patient will be schedul ed for an EGD, colonoscopy. The patient also has change of bowel habits, rule out any colonic lesion. Would recommend EGD, colon oscopy and also endoscopic ultrasound evaluation of the pancreas. Will also request for an MRI of th e abdomen with attention to the pancreas. Thank you very much for allowing me to participate in the care of the patient. Aidan Del Rosario MD cc: [id number] TT: 07/14/2016 08:34:20 Confirmation # [id number] Dictation # [id number] mn
--- NOTE | 2016-07-14 11:00 | MRI ---
PROCEDURE: MRI BRAIN WITH AND WITHOUT CONTRAST HISTORY: r/o MS COMPARISON: None. TECHNIQUE: Multiplanar, multisequence MR images of the brain were obtained with and without intravenous contrast enhancement. 15 cc of Omniscan FINDINGS: HEMORRHAGE: None DWI: No evidence of an acute or early subacute infarction. BRAIN PARENCHYMA: No mass,mass effect or edema. No atrophy or chronic microvascular ischemic changes. ENHANCEMENT: No abnormal intracranial enhancement. VENTRICLES: Unremarkable. No hydrocephalus. CRANIUM: Unremarkable. ORBITS: Grossly unremarkable. PARANASAL SINUSES/MASTOIDS: Clear VASCULAR SYSTEM: Skull base flow voids intact. OTHER FINDINGS: None . IMPRESSION: Unremarkable pre and post contrast enhanced MRI of the brain.
--- NOTE | 2016-07-14 11:05 | MRI ---
PROCEDURE: MR CERVICAL SPINE WITH AND WITHOUT CONTRAST HISTORY: r/o MS COMPARISON: None available. TECHNIQUE: Multiecho multiplanar sequences were performed through the cervical spine with and without the use of intravenous contrast. FINDINGS: Normal lordotic curvature. Craniocervical junction unremarkable. Vertebral body heights preserved. No marrow signal abnormality. Normal cervical cord. No paraspinal abnormality. No abnormal enhancement C2-3: No disc herniation, spinal canal stenosis or neural foraminal narrowing. C3-4: No disc herniation, spinal canal stenosis or neural foraminal narrowing. C4-5: There is disc degeneration with an osteophytic ridge and bilateral foraminal stenosis. No central stenosis C5-C6: There is disc degeneration with severe bilateral foraminal stenosis but no significant central stenosis C6-C7: Disc degeneration with a left paracentral disc protrusion and severe bilateral foraminal stenosis right greater than left C7-T1: No disc herniation, spinal canal stenosis or neural foraminal narrowing. OTHER FINDINGS: None. IMPRESSION: Degenerative changes with foraminal stenosis at multiple levels. No abnormality seen in the cord
[2016-07-14 12:11] LABS: BETA 1 GLOBULIN 0.5 g/dL (0.4-0.6); BETA 2 GLOBULIN 0.5 g/dL (0.2-0.5); GAMMA GLOBULIN 1.1 g/dL (0.8-1.7)
--- NOTE | 2016-07-14 12:51 | MRI ---
PROCEDURE: MRI Abdomen with and without contrast with MRCP HISTORY: Follow-up low density lesions seen in pancreatic tail on yesterday's CT scan COMPARISON: None available. TECHNIQUE: Multisequence, multiplanar MR images of the abdomen with and without gadolinium contrast enhancement. 15 cc of Omniscan FINDINGS: LIVER: Unremarkable. GALLBLADDER: Unremarkable. The common duct and pancreatic duct are normal in appearance on MRCP imaging SPLEEN: Unremarkable. PANCREAS: The small area of low density in the pancreatic tail is not visualized on MRI. The pancreas is normal on MRI. ADRENALS: Unremarkable. KIDNEYS: Unremarkable. AORTA: No aneurysm. ASCITES: None. PERITONEUM: Unremarkable. LYMPH NODES: Unremarkable. OTHER FINDINGS: None. IMPRESSION: Negative study
[2016-07-14] MEDS ORDERED: Sodium Chloride 0.9% 1,000 ML IV SCH (13:45)
[2016-07-14] MEDS ORDERED: Propofol 10 mg/ml Inj (20 ML) ONE ×2 (13:46→15:29)
[2016-07-14] MEDS ORDERED: Succinylcholine 200 mg/10 ml Inj IV ONE (13:47)
[2016-07-14 14:21] LABS: COLLECTION SAMPLE VENOUS (())
[2016-07-14] MEDS ORDERED: ePHEDrine 50 mg/ml Inj ONE (14:29)
[2016-07-14] MEDS ORDERED: Benzocaine/Butamben/Tetracai 14-2-2% TOP Spray TOP ONE (14:31)
--- NOTE | 2016-07-14 14:48 | PN ---
DATE: 07/14/2016 SUBJECTIVE: The patient is lying in bed in no acute distress. He complains of mild abdominal discom fort, and numbness and tingling of his hands and feet bilaterally. There is no shortness of breath, no cough, no chest pain. OBJECTIVE: VITAL SIGNS: Blood pressure 150/94, pulse 65, temperature 98.4, respiratory rate 18. LUNGS: Clear. HEART: Regular rate and rhythm. ABDOMEN: Soft with mild diffuse tenderness. No guarding, no rebound. Bowel sounds are normoactive. EXTREMITIES: Without cyanosis, clubbing, or edema. NEUROLOGIC: The patient is awake and oriented x 3 without focal sensory or motor deficits. SKIN: Warm and dry. LABORATORY DATA: WBC is 5.7, hemoglobin 15.0, hematocrit 43.0. CMP is within normal limits. Thyroi d function tests are also within normal limits. MRI of the brain showed no masses, strokes, infarcts or plaques. MRCP was negative for any kind of p ancreatic tumor. MRI of the cervical spine showed degenerative changes with foraminal stenosis at mu ltiple levels. IMPRESSION: 1. Abdominal pain/weight loss. Rule out occult malignancy. 2. Paresthesias, rule out secondary to a cervical radiculopathy, rule out paraneoplastic syndrome du e to occult malignancy, rule out peripheral neuropathy, possibly secondary to diabetes. 3. Hyperglycemia, rule out prediabetes with diabetic neuropathy. 4. Coronary artery disease, status post stent placement. 5. Hypercholesterolemia. 6. Hypertension. PLAN: The patient is scheduled for upper endoscopy with endoscopic ultrasound of the pancreas today as well as colonoscopy. Continue neurologic followup with Dr. Weeks, GI followup with Dr. Del Rosario, and surgical followup with Dr. Lo. Social work for discharge planning. Miguel A Grande JD, MD cc: [phone] TT: 07/14/2016 14:48:15 Confirmation # [id number] Dictation # [id number] mn
[2016-07-14] MEDS ORDERED: Rocuronium 10 mg/ml (5 ml) ONE (15:28)
[2016-07-14] MEDS ORDERED: Neostigmine Methylsulfate 3mg/3ml Syringe IV ONE (15:45)
[2016-07-14] MEDS ORDERED: Glycopyrrolate 0.2 mg/ml (2ml vial) ONE (15:47)
--- NOTE | 2016-07-14 15:57 | CP.PCM.PCO ---
Physician Communication Note - Physician Communication Note Physician Communication Note: All MRI normal!:EGD today
[2016-07-14] MEDS ORDERED: Lactated Ringer's 1,000 ML IV SCH (16:45)
--- NOTE | 2016-07-14 23:14 | PN ---
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 Upper GI endoscopy revealed only gastritis, biopsies were taken to rule out celiac disease and duodenal mucosa appeared otherwise unremarkable. The patient had an endoscopic ultrasound and showed no pancreatic lesion noticed. CBD and PD also appeared unremarkable. There was no celiac adenopathy. The patient subsequently underwent a colonoscopy. The preparation was fair. There is no obvious colonic lesion noticed. The MRI also was reviewed was negative. RECOMMENDATIONS: The patient will be started on a soft diet. The patient would benefit from Amitiza or Linzess for chronic constipation. The patient would need further workup regarding for neuropathy. I advised the patient to have nutritional supplement and increased calorie intake. Thank you very much for allowing us to participate in the care of the patient. Aidan Del Rosario MD cc: [phone] TT: 07/14/2016 23:13:44 Confirmation # [id number] Dictation # [id number] winter KENT
[2016-07-15 08:27] VITALS: BP 130/70; PULSE 81; RESP 18; TEMP 97.9; O2SAT 99
--- NOTE | 2016-07-15 08:31 | CP.PCM.PN ---
Subjective - Date & Time of Evaluation Date of Evaluation: 07/15/16 Time of Evaluation: 08:28 - Subjective Subjective: SURGICAL PROGRESS NOTE FOR DR. LO Pt seen and examined t bedside. Resting comfortably. No acute events overnight. Denies having any abd pain, neuropathic pain, N/V/D/C, fevers or chills. Objective - Vital Signs/Intake and Output Vital Signs (last 24 hours): Temp Pulse Resp BP Pulse Ox 97.9 F 81 18 130/70 99 07/15/16 08:26 07/15/16 08:26 07/15/16 08:26 07/15/16 08:26 07/15/16 08:26 Intake and Output: 07/15/16 07/15/16 06:59 18:59 Intake Total 540 Balance 540 - Medications Medications: Current Medications Escitalopram Oxalate (Lexapro) 10 mg PO DAILY ANJU Last Admin: 07/14/16 19:56 Dose: 10 mg Gabapentin (Neurontin) 400 mg PO TID ANJU PRN Reason: Protocol Last Admin: 07/14/16 19:56 Dose: 400 mg Lorazepam (Ativan) 1 mg PO TID PRN; Protocol PRN Reason: Anxiety Last Admin: 07/13/16 13:27 Dose: 1 mg Lorazepam (Ativan) 2 mg IVP HS PRN; Protocol PRN Reason: Anxiety Last Admin: 07/14/16 22:29 Dose: 2 mg Zolpidem Tartrate (Ambien) 10 mg PO HS PRN; Protocol PRN Reason: Insomnia - Labs Labs: 07/14/16 07:00 07/14/16 07:00 PT 11.9 Seconds (9.9-11.8) H 07/14/16 07:00 INR 1.10 (0.93-1.08) H 07/14/16 07:00 APTT 29.0 Seconds (23.7-30.8) 07/14/16 07:00 - Constitutional Appears: Non-toxic, No Acute Distress - Head Exam Head Exam: ATRAUMATIC - ENT Exam ENT Exam: Mucous Membranes Moist - Respiratory Exam Respiratory Exam: absent: Accessory Muscle Use, Respiratory Distress - GI/Abdominal Exam GI & Abdominal Exam: Soft. absent: Distended, Firm, Guarding, Rigid, Tenderness - Neurological Exam Neurological Exam: Alert, Awake, Oriented x3 - Psychiatric Exam Psychiatric exam: Normal Affect, Normal Mood - Skin Skin Exam: Dry, Intact, Normal Color, Warm Assessment and Plan - Assessment and Plan (Free Text) Assessment: 55 year old male with past medical history of HLD, CAD s/p stent, HTN is seen for possible lesion in tail of pancreas seen on CT of chest/abd/pelvis with IV & PO contrast. Plan: - MRCP is negative. Nothing visualized on tail of pancreas - Colonoscopy yesterday showed gastritis, gastric polyp. No pancreatic lesion seen. Showed diverticulosis, hemarrhoids, and redundant sigmoid colon - Safe for discharge from surgical stand point Will discuss with attending Dr. Lo for further recs. Mariaa Abebe PGY1
--- NOTE | 2016-07-15 13:02 | PN ---
DATE: 07/15/2016 CHIEF COMPLAINT: Followup for paresthesias in hands and feet and burning sensation. SUBJECTIVE: The patient seen and examined at bedside. His MRI of the brain showed no acute intracra nial abnormalities. His MRI C-spine just showed some mild degenerative changes and foraminal stenosi s at C5-C6, C6-C7, mostly right greater than left and some bilateral femoral stenosis which is not ca using his paresthesias. At this time, I feel like his symptoms could be secondary to small fiber laurie ropathy which we will have outpatient neurological workup in terms of an EMG and more additive blood work. He is clinically stable at this point. PAST MEDICAL HISTORY: Coronary artery disease status post stent, hypertension, hypercholesterolemia. FAMILY HISTORY: Noncontributory. SOCIAL HISTORY: No illicit drug use, smoking, or ETOH abuse. He is a former smoker, quit 8 years ag o. CURRENT MEDICATIONS: Reviewed via nurse's reconciliation sheet. ALLERGIES: No known drug allergies. REVIEW OF SYSTEMS: A 14-point review of systems negative except for the HPI. PHYSICAL EXAMINATION: VITAL SIGNS: Temperature of 97.9, pulse rate of 81, blood pressure 130/70, respiratory rate of 18, o xygen saturation 99% via room air. GENERAL: The patient is sitting up in bed in no acute distress. HEENT: Atraumatic, normocephalic. PERRLA. Extraocular muscles intact. NECK: Supple, no JVD, no adenopathy noted. LUNGS: Clear to auscultation. No adventitious sounds. HEART: S1, S2, normal rate and rhythm. No murmurs, rubs, or gallops. ABDOMEN: Soft, nontender, nondistended. Bowel sounds are present. EXTREMITIES: No clubbing, no cyanosis. Peripheral pulses 2+ felt bilaterally. NEUROLOGIC: The patient is alert, orientated to person, place, month and year. Speech is fluent wit hout any errors. Cranial nerves II-XII intact. MOTOR: Moves all extremities equally. No pronator drift seen. Strength is 5/5 in both upper and lo wer extremities. Toes downgoing bilaterally. SENSORY: Light touch, pinprick, proprioception, vibration is intact. DTRs 2+ throughout and brisk a t the knees. No clonus. COORDINATION: Vlfhcg-iz-bptd intact. Gait is normal. Romberg negative. LABORATORY DATA: B12 is normal. C-reactive protein is normal. Normal TPO antibodies. The rest of his blood work is becoming normal. ASSESSMENT AND PLAN: This is a 55-year-old man with past medical history of hypertension, coronary a rtery disease status post stent, hypercholesterolemia. Came in with average 20-pound weight loss, wh ich he was trying to diet and a history of paresthesias. Now starting to have burning sensation of h is hands and feet and cold temperature of his feet. So far, his workup has been negative. His CEA i s normal. C-reactive protein is normal and B12 has been normal. His MMA and TPO antibodies, SPEP an d immunofixation test have all been unremarkable as well as lead levels. His MRI of the brain showed no acute intracranial abnormalities. MRI C-spine shows some degenerative disk disease and foraminal stenosis at C5-C7 levels and no evidence of any demyelinating disease. I feel like his constellatio n of symptoms and paresthesias could be secondary to small fiber peripheral neuropathy. 1. Recommend an outpatient EMG nerve conduction study of his extremities to assess for that. 2. Further blood work as an outpatient in my neurological office. At this time, continue with gabap entin 400 mg p.o. t.i.d. for neuropathic pain and alpha lipoic acid 600 mg p.o. t.i.d. as well. At this time, he is clinically stable from my standpoint. We will follow him up as an outpatient. W e will sign off. Stefano Weeks MD cc: [phone] TT: 07/15/2016 13:01:50 Confirmation # [id number] Dictation # [id number]
--- NOTE | 2016-07-15 13:25 | DS ---
HOSPITAL COURSE: The patient is a 55-year-old male admitted through the Emergency Department on 2016 with abdominal pain and weight loss. CT scan showed a possible pancreatic lesion. The patient also complains of paresthesias of his hands and feet. He was seen in consultation by neurology, Dr. Weeks. He had an MRI of the brain which was negative. He had an MRI of the C-spine which showed de generative changes of the cervical spine as well as spinal stenosis. The patient was seen in consult ation by Dr. Del Rosario for GI. He underwent upper and lower endoscopy as well as endoscopic ultrasoun d which was negative for any pancreatic lesions. He also had an MRCP which was negative. The patien t is now medically stable for discharge to home. PHYSICAL EXAMINATION: VITAL SIGNS: Blood pressure 130/70, temperature 97.9, pulse 81, respiratory rate 18. LUNGS: Clear. HEART: Regular rate and rhythm. ABDOMEN: Soft, nontender. Bowel sounds are normoactive. EXTREMITIES: Without cyanosis, clubbing or edema. NEUROLOGIC: The patient is awake and oriented x 3 without focal sensory or motor deficits. SKIN: Warm and dry. IMPRESSION: 1. Abdominal pain/weight loss. 2. Hypertension. 3. Prediabetes. 4. Coronary artery disease status post stent placement. 5. Cervical radiculopathy. Rule out peripheral neuropathy. 6. Hypercholesterolemia. PLAN: The patient will be discharged to home on the following medications: Ambien 10 at bedtime, At saad 1 mg twice daily, Lexapro 10 mg daily and gabapentin 400 mg 3 times daily. The patient will be maintained on a heart healthy diet. Activity is ad alonso minimum. He will be followed up in my office within the next 1-2 weeks and seen as an outpatient by neurology, Dr. Weeks, as well as GI, Dr. Kadeem rodriguez. Miguel A Grande JD, MD cc: [id number] TT: 07/15/2016 13:24:42
[2016-07-17 17:50] LABS: COLLECTION SAMPLE (C/V): Venous (())
== END 2016-07-15 14:59 | disposition home or self-care (01) | DRG 392 ==
LOC: ED 08:42 → ERH 11:23 → 5RNO 12:28
PROVIDERS: ADMIT Internal Medicine; ATTEND Internal Medicine
PROC: BF47ZZZ Ultrasonography of Pancreas (ICD-10-PCS; 2016-07-14)
PROC: 0DB68ZX Excision of Stomach, Via Natural or Artificial Opening Endoscopic, Diagnostic (ICD-10-PCS; principal; 2016-07-14 14:00)
PROC: 0DB98ZX Excision of Duodenum, Via Natural or Artificial Opening Endoscopic, Diagnostic (ICD-10-PCS; 2016-07-14 14:00)
PROC: 0DBB8ZX Excision of Ileum, Via Natural or Artificial Opening Endoscopic, Diagnostic (ICD-10-PCS; 2016-07-14 14:00)
DX: K29.50 Unspecified chronic gastritis without bleeding (principal); K31.7 Polyp of stomach and duodenum; K57.30 Diverticulosis of large intestine without perforation or abscess without bleeding; K63.89 Other specified diseases of intestine; K64.8 Other hemorrhoids; M48.02 Spinal stenosis, cervical region; I10 Essential (primary) hypertension; R63.4 Abnormal weight loss; R73.03 Prediabetes; I25.10 Atherosclerotic heart disease of native coronary artery without angina pectoris; E78.00 Pure hypercholesterolemia, unspecified; E78.5 Hyperlipidemia, unspecified; M50.122 Cervical disc disorder at C5-C6 level with radiculopathy; M50.123 Cervical disc disorder at C6-C7 level with radiculopathy; F32.9 Major depressive disorder, single episode, unspecified; K59.09 Other constipation; Z95.5 Presence of coronary angioplasty implant and graft; Z87.891 Personal history of nicotine dependence